=== PATIENT | female | born 2000 | race Caucasian/White ===

== ENCOUNTER 2023-05-11 01:47 | Emergency (ER) | payer BC, SELFPAY ==
[2023-05-11 02:06] VITALS: BP 136/77; PULSE 110; RESP 16; TEMP 37.4; O2SAT 98; BMI 35.2
== END 2023-05-11 06:28 | disposition left against medical advice (07) ==
PROVIDERS: Emergency Provider Emergency Medicine
DX: O26.92 Pregnancy related conditions, unspecified, second trimester (principal); Z3A.17 17 weeks gestation of pregnancy
CPT/HCPCS: 99281

== ENCOUNTER 2024-04-30 17:28 | Emergency (ER) | payer BC, SELFPAY ==
--- NOTE | ~2024-04-30 | XR_ITS ---
EXAMINATION: XR CHEST CLINICAL INFORMATION: Cough. Right rib pain. COMPARISON: None available. TECHNIQUE: 2 views of the chest were obtained. FINDINGS: The heart is normal in size. The lungs are clear. Pleural spaces are clear. No pneumothorax. No acute osseous abnormality. XR/XR chest 2V IMPRESSION: No acute cardiopulmonary disease.
[2024-04-30 17:47] VITALS: BP 121/64; PULSE 99; RESP 16; TEMP 36.4; O2SAT 98; BMI 32.6
--- NOTE | 2024-04-30 18:58 | ED_ITS ---
HPI - URI/Sore Throat General Chief Complaint: Upper Respiratory Symptoms Stated Complaint: ? broken rib Time Seen by Provider: 04/30/24 18:58 Source: patient Mode of arrival: ambulatory Limitations: no limitations History of Present Illness HPI Narrative: Patient is a 24-year-old female who presents emergency department for evaluation of pain to the right lateral lower ribcage. States that she has been experien cing bronchitis with past month completed a course of antibiotics and is taking Tessalon Perles for cough. Her cough persists is dry nonproductive. Denies associated fevers or chills, shortness of breath, anterior chest pain. Denies personal history of DVT/PE/malignancy, OCP, recent prolonged immobilization, lower extremity redness pain or swelling. Related Data Allergies Allergy/AdvReac Type Severity Reaction Status Date / Time No Known Allergies Allergy Verified 04/30/24 17:51 Review of Systems Review of Systems: Yes all other systems are reviewed and are negative PMFSH Past Medical History Attestation statement: The following information was validated with the patient. Source: old records reviewed Social History Social History Advance Directives: No Advance Directives Information Provided: No Physical Exam Vital Signs: Vital Signs: Last Vital Signs Temp 97.3 F 04/30/24 19:04 Pulse 87 04/30/24 19:04 Resp 16 04/30/24 19:04 BP 123/52 L 04/30/24 19:04 Pulse Ox 99 04/30/24 19:04 O2 Del Method Room Air 04/30/24 19:04 BMI result Body Mass Index 32.6 Appearance: Alert.?Oriented to person, place and time. No acute distress.?Normal affect. Eyes: Pupils equal, round and reactive to light.? ENT: TM normal bilaterally. Pharynx normal.?? Neck: Normal inspection.? Neck supple.??No cervical adenopathy CVS: Heart sounds normal. Normal heart rate and rhythm.? Pulses normal.?? Respiratory: No respiratory distress.? Lung sounds clear to auscultation bilaterally??tenderness upon palpation of the right lateral lower chest wall, no crepitus, no palpable deformities Abdomen: Soft and non-tender. Normoactive bowel sounds. Skin: Skin warm and dry.? Normal skin color.? ? Extremities: No lower extremity edema.? Neuro: Moves all extremities spontaneously. Sensation intact bilaterally. No motor deficits. Ambulates with normal steady gait. Medical Decision Making Medical Decision Making [facility] Narrative: Patient is a 24-year-old female who presents emergency department for evaluation of right chest pain. At this time history and physical exam not consistent with ACS/PE/pneumonia. Wells negative. CXR negative. Symptoms most consistent with costochondritis in the setting of bronchitis. Well-appearing, nontoxic, afebrile, no tachycardia or tachypnea/hypoxia. Speaking clear full sentences, ambulatory with steady gait. Discussed conservative treatment including rest, Tylenol/ibuprofen as needed for pain. Advised to follow-up with primary care provider as needed, discussed reasons to return back to the emergency department. All questions were answered. Patient discharged home in stable condition. Differential Diagnosis Differential Diagnoses: The differential diagnosis associated with the presentation includes ( See narrative above) Admission/Observation Consideration of admission/observation: Escalation of care including admission/observation considered ( see narrative above) Lab Data [facility] Lab Attestation statement: I reviewed the patient's lab results. ( see narrative above) Independent Interpretation I performed an independent interpretation of an: Plain X-Ray (No consolidation or infiltrate, no rib fracture, no pneumothorax) Radiology Impression Discussion of test interpretation with radiology: I have reviewed the radiologist's reading. Radiologist Impression: XR/XR chest 2V IMPRESSION: No acute cardiopulmonary disease. External Record Review External record reviewed: Outpatient record Prescription Management I considered prescription management with: Pain Medication ( acetaminophen/ibuprofen) Discharge Plan Discharge Clinical Impression: Costochondritis Patient Disposition: Home, Self-Care Instructions: Costochondritis (ED) Additional Instructions: As discussed, your x-ray today was normal. You can develop pain like this due to inflammation with your excessive coughing. Unfortunately, the cough associated with bronchitis for some people can last even up to 6 weeks. You can take ibuprofen 200 mg, 3 tablets (600mg) every 6-8 hours as needed for pain, in addition to Tylenol 500 mg, 2 tablets (1,000mg) every 4-6 hours as needed for pain, but not to exceed 3 doses daily (3,000mg).? Continue with benzonatate for cough Follow-up with your primary care doctor as needed Referrals: Ceci Zelaya MD [Primary Care Provider] - Print Language: Yi
[2024-04-30 19:04] VITALS: BP 123/52; PULSE 87; RESP 16; TEMP 36.3; O2SAT 99
[2024-04-30 19:25] VITALS: BP 123/52; PULSE 87; RESP 16; TEMP 36.3; O2SAT 99
== END 2024-04-30 19:26 | disposition home or self-care (01) ==
PROVIDERS: Emergency Provider Emergency Medicine; PCP Family Medicine
DX: M94.0 Chondrocostal junction syndrome [Tietze] (principal); R05.9 Cough, unspecified
CPT/HCPCS: 71046; 99282; 99283